=== PATIENT | male | born 1965 | race Caucasian/White ===

== ENCOUNTER 2017-03-30 19:54 | Observation (INO) | payer BC ==
[2017-03-30] MEDS ORDERED: METOCLOPRAMIDE 5 MG/ML 2 ML VIAL IVP STA (21:59)
[2017-03-30] MEDS ORDERED: SODIUM CHLORIDE 0.9% 500 ML IV STA (21:59)
[2017-03-30] MEDS ORDERED: SODIUM CHLORIDE 0.9% 1,000 ML IV STA (21:59)
--- NOTE | 2017-03-30 22:44 | ED ---
General Adult HPI - General Chief complaint: Dizziness Stated complaint: Dizziness Time Seen by Provider: 03/30/17 20:58 Source: patient, family, RN notes reviewed Mode of arrival: ambulatory Limitations: no limitations - History of Present Illness Initial comments: Chief complaint history of present illness this is a 51-year-old male here with a complaint of severe dizziness diaphoresis and mild chest pressure. The patient reports that approximately 10 days ago he had similar episode. At that time he was in [facility]. He was admitted to the hospital he had stress echocardiogram. The patient states at that time while driving he developed some discomfort to his right side of the chest became very diaphoretic and very dizzy. 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 States that he nearly passed out. States he had mild right-sided chest discomfort. - Related Data Home Medications Medication Instructions Recorded Confirmed Lisinopril [Zestril] 10 mg PO DAILY 03/30/17 03/30/17 Allergies Allergy/AdvReac Type Severity Reaction Status Date / Time No Known Allergies Allergy Verified 03/30/17 21:08 Review of Systems ROS Statement: Those systems with pertinent positive or pertinent negative responses have been documented in the HPI. Review of systems. Patient denies any headache or visual acuity changes at this time the chest pain no dizziness no shortness of breath no GI/ problems no neuro deficits. All systems reviewed. Past medical problems significant for having had 2 syncopal episode years ago possibly due to dehydration. Otherwise he did not lisinopril for several months because of recent diagnosed hypertension. Surgeries include undescended testicle and tonsillectomy. The patient's family history significant for cancers and include lung, breast, brain and ovary. Patient has seasonal ALLERGIES. He started smoking occasionally this past year. Encouraged to stop. Drink alcohol socially. ROS Other: All systems not noted in ROS Statement are negative. Past Medical History Past Medical History: Hypertension History of Any Multi-Drug Resistant Organisms: None Reported Past Surgical History: Tonsillectomy Additional Past Surgical History / Comment(s): testicle Past Psychological History: No Psychological Hx Reported Smoking Status: Former smoker Past Alcohol Use History: Rare Past Drug Use History: None Reported General Exam - General Exam Comments Initial Comments: General: The patient is awake and alert, in no distress, and does not appear acutely ill. Proximal one hour ago the patient reports he couldn't stand because of severe dizziness, diaphoresis, nausea, vomiting and head pressure. Eye: Pupils are equal, round and reactive to light, extra-ocular movements are intact ; there is normal conjunctiva bilaterally. No signs of icterus. Ears, nose, mouth and throat: There are moist mucous membranes and no oral lesions. Neck: The neck is supple, there is no tenderness, no carotid bruit, thyroid not enlarged, no anterior cervical lymphadenopathy. Cardiovascular: There is a regular rate and rhythm. No murmur, rub or gallop is appreciated. Respiratory: Lungs are clear to auscultation, respirations are non-labored, breath sounds are equal. No wheezes, stridor, rales, or rhonchi. Gastrointestinal: Soft, non-distended, non-tender abdomen without masses or organomegaly noted. There is no rebound or guarding present. No CVA tenderness. Bowel sounds are unremarkable. Back: There is no tenderness to palpation in the midline. There is no obvious deformity. No rashes noted. Musculoskeletal: Normal ROM, no tenderness, There is no pedal edema. There is no calf tenderness or swelling. Sensation intact. Pulses equal bilaterally 2+. Neurological: Neurologically intact no focal or lateralizing findings. Skin: Skin is warm and dry and no rashes or lesions are noted. Limitations: no limitations Course Vital Signs 03/30/17 03/30/17 20:46 21:27 Temperature 98.2 F Pulse Rate 74 70 Respiratory 20 16 Rate Blood Pressure 156/103 143/92 O2 Sat by Pulse 99 Oximetry EKG Findings - EKG Comments: EKG Findings:: EKG was done and reviewed at 2019 showing normal sinus rhythm no acute ST elevation no ectopy no ischemic changes. Rate 77 MO interval is 164 QRS [address] QT [address] Pettit Medical Decision Making - Medical Decision Making medical decision making; patient's white count is 9.2 hemoglobin 15 hematocrit of 44 with an INR 1.1. Potassium 4.0. BUN 10 creatinine 0.93 with a GFR greater than 60. Disposition Clinical Impression: Severe dizziness, Syncope Disposition: ADMITTED IP TO THIS HOSP Condition: Serious Referrals: Valentine Cevallos DO [Primary Care Provider] - 1-2 days
[2017-03-30 22:45] LABS: Basophils # (A) 0.1 k/uL (0-0.2); Basophils % (A) 1 %; CH 29.3; CHCM 36.1; Eosinophils # (A) 0.1 k/uL (0-0.7); Eosinophils % (A) 1 %; HCT 44.6 % (39.0-53.0); HDW 2.63; HGB 15.3 gm/dL (13.0-17.5); Luc # (Auto) 0.14; Luc % (Auto) 2; Lymphocytes # (A) 2.6 k/uL (1.0-4.8); Lymphocytes % (A) 28 %; MCH 27.9 pg (25.0-35.0); MCHC 34.3 g/dL (31.0-37.0); MCV 81.3 fL (80.0-100.0); Mean Platelet Volume 8.5; Monocytes # (A) 0.5 k/uL (0-1.0); Monocytes % (A) 5 %; Neutrophils # (A) 5.9 k/uL (1.3-7.7); Neutrophils % (A) 64 %; RBC 5.49 m/uL (4.30-5.90); RDW 14.5 % (11.5-15.5); WBC 9.2 k/uL (3.8-10.6); WBC (Perox) 9.01
[2017-03-30 22:54] LABS: ALT 31 U/L (21-72); AST 19 U/L (17-59); Alkaline Phosphatase 55 U/L (38-126); Anion Gap 10 mmol/L; Blood Urea Nitrogen 10 mg/dL (9-20); Calcium 9.5 mg/dL (8.4-10.2); Carbon Dioxide 23 mmol/L (22-30); Chloride 107 mmol/L (98-107); Glucose 87 mg/dL (74-99); INR 1.1 (<1.2); Non-African American GFR(MDRD) >60 (>60 ml/min/1.73 sqM); Sodium 140 mmol/L (137-145); Total Bilirubin 0.5 mg/dL (0.2-1.3); Total Protein 6.8 g/dL (6.3-8.2)
[2017-03-30] MEDS ORDERED: ACETAMINOPHEN TAB 325 MG TAB PO PRN (23:12)
[2017-03-30] MEDS ORDERED: NALOXONE 0.4 MG/ML 1 ML VIAL IV PRN (23:12)
[2017-03-30] MEDS ORDERED: SODIUM CHLORIDE 0.9% 1,000 ML IV SCH (23:15)
[2017-03-30 23:18] LABS: Troponin I <0.012 ng/mL (0.000-0.034)
--- NOTE | 2017-03-30 23:32 | CT ---
EXAM: CT Head Without Intravenous Contrast CLINICAL HISTORY: Reason: Recurrent, severe dizziness with diaphoresis TECHNIQUE: Axial computed tomography images of the head/brain without intravenous contrast. CTDI is 57.40 mGy and DLP is 1150.50 mGy-cm. This CT exam was performed using one or more of the following dose reduction techniques: automated exposure control, adjustment of the mA and/or kV according to patient size, and/or use of iterative reconstruction technique. COMPARISON: No relevant prior studies available. FINDINGS: Brain: Mild volume loss and small vessel disease. No hemorrhage. No edema. Ventricles: Unremarkable. No ventriculomegaly. Bones/joints: Unremarkable. No acute fracture. Soft tissues: Unremarkable. Sinuses: Mild paranasal sinus mucosal thickening. Small maxillary sinus polyps or mucous retention cyst. Mastoid air cells: Unremarkable as visualized. No mastoid effusion. Nasopharynx: Mild polypoid thickening within the right nasal cavity associated with the middle turbinate. Mild leftward nasal septal deviation. IMPRESSION: No evidence acute intracranial abnormality
[2017-03-31 00:04] LABS: Creatine Kinase 120 U/L (55-170)
[2017-03-31 00:14] LABS: Creatine Kinase MB 1.4 ng/mL (0.0-2.4)
[2017-03-31 06:40] LABS: Creatine Kinase 94 U/L (55-170)
[2017-03-31 06:53] LABS: Troponin I <0.012 ng/mL (0.000-0.034)
--- NOTE | 2017-03-31 07:17 | P.CNNES ---
History of Present Illness Consult date: 03/31/17 Reason for Consult: Patient being evaluated for near syncope and diaphoresis. History of Present Illness: This patient is a 51-year-old right-handed white male who was brought to the emergency room at [facility] for evaluation of acute onset of dizziness and diaphoresis. 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 He was at work yesterday and apparently had onset of severe diaphoresis and lightheaded feeling. Patient states he was feeling as if he was going to pass out. Several of his coworkers helped him sit down in a chair and commented that he was severely diaphoretic and appeared to be paling complexion. They recommended that he come into the hospital for evaluation. The patient mentions that 10 days ago while driving to [facility] he had an episode in which she felt the same symptoms of lightheadedness and extreme weakness. He also had some diaphoresis at that time. He was taken to the local emergency room and [facility] and underwent a stress test. Apparently his laboratory testing was all fine and his stress test also came back within normal limits. The patient mentions that about 10 years ago he did have some symptoms that were related to his heart. He underwent a cardiac catheterization at that time with Dr. RACHEL Harris. He states that that catheterization report was normal. More recently he has been having difficulty controlling his blood pressure. He was started on lisinopril by his primary care physician about a month ago and has been concern that he may be having side effects to the lisinopril. He states that he feels dizzy and lightheaded usually soon after taking his dose of lisinopril in the evening. He was seen by his primary care physician a few days ago and was recommended to undergo a carotid Doppler ultrasound which has been scheduled for him as outpatient. The patient states that he has no previous history of actual passing out and loss of consciousness. His current symptoms are more of a sense of extreme fatigue associated with his episode of near syncope. The patient was advised to take one baby aspirin daily for secondary stroke prevention. He is not a big [place] acute for medications and has been trying to do all of his medications naturally. He is also working on weight reduction and concerned if he can bring down his blood pressure with diet control and weight restriction. The patient has not been seen by cardiology locally any time recent. As mentioned he did see Dr. RACHEL Harris in the past for cardiac catheterization. The patient otherwise states he has no previous history of TIA or stroke. He is now been admitted and neurology has been consulted for further evaluation and recommendations. Review of Systems Constitutional: Denies chills, Denies fever Eyes: denies blurred vision, denies pain Ears, nose, mouth and throat: Denies headache, Denies sore throat Cardiovascular: Denies chest pain, Denies shortness of breath Respiratory: Denies cough Gastrointestinal: Denies abdominal pain, Denies diarrhea, Denies nausea, Denies vomiting Musculoskeletal: Denies myalgias Integumentary: Denies pruritus, Denies rash Neurological: Denies numbness, Denies weakness Psychiatric: Denies anxiety, Denies depression Endocrine: Denies fatigue, Denies weight change Past Medical History Past Medical History: Hypertension Additional Past Medical History / Comment(s): syncopal episodes History of Any Multi-Drug Resistant Organisms: None Reported Past Surgical History: Tonsillectomy Additional Past Surgical History / Comment(s): testicle Past Anesthesia/Blood Transfusion Reactions: No Reported Reaction Past Psychological History: No Psychological Hx Reported Smoking Status: Former smoker Past Alcohol Use History: Rare Past Drug Use History: None Reported - Past Family History Father Family Medical History: Myocardial Infarction ([place]) Mother Family Medical History: Cancer Additional Family Medical History / Comment(s): AAA - blockage in LE Medications and Allergies Home Medications Medication Instructions Recorded Confirmed Type Lisinopril [Zestril] 10 mg PO DAILY 03/30/17 03/30/17 History Allergies Allergy/AdvReac Type Severity Reaction Status Date / Time No Known Allergies Allergy Verified 03/30/17 21:08 Physical Examination - Vital Signs Vital Signs: Vital Signs Temp Pulse Pulse Resp BP BP Pulse Ox 03/31/17 03:51 98.4 F 58 L 16 146/80 99 03/31/17 03:49 54 L 16 03/31/17 01:00 62 16 03/31/17 00:50 97.7 F 62 16 164/100 95 03/31/17 00:32 98.0 F 70 20 169/96 100 03/30/17 23:07 67 20 142/69 98 03/30/17 21:27 70 16 143/92 99 03/30/17 20:46 98.2 F 74 20 156/103 Intake and Output 03/30/17 03/31/17 03/31/17 22:59 06:59 14:59 Other: Voiding Method Toilet Weight 97.522 kg - Constitutional General appearance: average body habitus, cooperative - EENT EENT: PERRL, mucous membranes moist - Respiratory Respiratory: lungs clear, normal breath sounds - Cardiovascular Cardiovascular: regular rate, normal S1, normal S2 Extremities: no peripheral edema bilaterally - Gastrointestinal Gastrointestinal: normoactive bowel sounds - Integumentary Integumentary: normal - Neurologic Cranial nerve examination: PERRL, EOMI, VFF, V1/V2/V3 grossly intact, face symmetric, tongue midline, intact gag reflex, intact corneal reflex, normal palatal elevation Speech examination: intact Sensorimotor examination: intact Detailed motor examination: grossly full strength in all extremities Motor examination - right side: 5/5: biceps, triceps, wrist flexion, wrist extension, steel hanger, hip flexors, knee extensors, dorsiflexion, toe extension (EHL) , plantarflexion Motor examination - left side: 5/5: biceps, triceps, wrist flexion, wrist extension, steel hanger, hip flexors, knee extensors, dorsiflexion, toe extension (EHL) , plantarflexion Detailed sensory examination: intact Reflex and gait examination: intact Reflexes: 1+: ankle, bicep, knee, tricep - Musculoskeletal Musculoskeletal: no pain - Psychiatric Psychiatric: mood/affect appropriate, cooperative Results - Laboratory Findings CBC and BMP: 03/30/17 22:32 03/30/17 22:32 Assessment and Plan (1) Near syncope Status: Acute Code(s): R55 - SYNCOPE AND COLLAPSE (2) Disequilibrium Status: Acute Code(s): R42 - DIZZINESS AND GIDDINESS (3) Hypertension Status: Acute Code(s): I10 - ESSENTIAL (PRIMARY) HYPERTENSION (4) Severe dizziness Status: Acute Code(s): R42 - DIZZINESS AND GIDDINESS Plan: This patient is a 51-year-old male who was admitted to [facility] with symptoms of severe diaphoresis and dizziness. Patient had a near syncopal episode at work. He was noted by his colleagues is being very pale and sweaty. He was brought into the emergency room where he was subsequently admitted to Hospital. His neurological examination at this time is nonfocal. He did undergo a computed tomography scan of the brain in the ER which was reviewed and is negative for any acute changes. The patient's clinical history and exam findings are more consistent probable near syncope of cardiogenic origin. We have recommended a cardiology consultation for further evaluation and assessment. He has been having difficulty controlling his blood pressure with the use of lisinopril. We will await further recommendations from cardiology. We are recommending a carotid Doppler ultrasound to be done today for the patient as well. We will obtain his most recent laboratory test results as well from his primary care physician. His neurological examination at this time is nonfocal. We will continue close neurological follow-up for the patient during this admission. Time with Patient: Greater than 30
[2017-03-31 08:19] VITALS: RESP 18
--- NOTE | 2017-03-31 08:44 | US ---
EXAMINATION TYPE: US carotid duplex BILAT DATE OF EXAM: 03/31/2017 COMPARISON: CT Brain CLINICAL HISTORY: Patient with near syncopal episodes.. Patient stated has loss of balance episodes with current blood pressure medication. EXAM MEASUREMENTS: RIGHT: Peak Systolic Velocity (PSV) cm/sec ----- Right CCA: 94.2 ----- Right ICA: 87.7 ----- Right ECA: 101.8 ICA/CCA ratio: 0.9 RIGHT: End Diastole cm/sec ----- Right CCA: 36.1 ----- Right ICA: 43.6 ----- Right ECA: 24.8 LEFT: Peak Systolic Velocity (PSV) cm/sec ----- Left CCA: 100.5 ----- Left ICA: 85.4 ----- Left ECA: 95.5 ICA/CCA ratio: 0.8 LEFT: End Diastole cm/sec ----- Left CCA: 28.5 ----- Left ICA: 18.4 ----- Left ECA: 18.4 VERTEBRALS (direction of flow): Right Vertebral: Antegrade Left Vertebral: Antegrade Rhythm: Normal Mild intimal wall thickening at bilateral carotid bifurcation, but PSV is wnl bilaterally. IMPRESSION: No evidence of hemodynamically significant stenosis within either carotid system.
[2017-03-31] MEDS ORDERED: ENOXAPARIN 40 MG/0.4 ML SYRINGE SQ SCH (09:00)
--- NOTE | 2017-03-31 10:41 | P.CRDCN ---
History of Present Illness History of present illness: Patient admitted with recurrent syncope. He's had at least 3 episodes after starting lisinopril 10 mg daily for hypertension. One of the episodes occurred while he was driving He's had prior episodes and at least one of them occurred when he was sitting in a restaurant. He had just started drinking an alcoholic beverage. Recent stress test was normal recent 2-D echo was normal it showed borderline concentric left ventricular hypertrophy EF 60-65% normal diastolic function RV size was normal Social alcohol use Normal electrolytes two normal cardiac enzymes Impression Recurrent syncopal spells one episode while driving several other episodes while sitting and a few others while standing, associated nausea and sweatiness cold and clammy. Symptomatology suggestive and consistent with neurocardiogenic syncope However there were a few episodes where he was sitting and and one episode he was driving. He was not orthostatic and felt his blood pressure was high upon standing. Also need to evaluate for cardioinhibitory neurocardiogenic syncope Suggest Stop lisinopril Low salt diet Minimal alcohol consumption Home blood pressure monitoring Tilt table test today Consider implantation of a loop monitor especially if symptoms continue For antihypertensive therapy one may consider amlodipine 2.5 mg by mouth daily instead on any antihypertensive drug could precipitate an underlying tendency for neurocardiogenic syncope Past Medical History Past Medical History: Hypertension Additional Past Medical History / Comment(s): syncopal episodes History of Any Multi-Drug Resistant Organisms: None Reported Past Surgical History: Tonsillectomy Additional Past Surgical History / Comment(s): testicle Past Anesthesia/Blood Transfusion Reactions: No Reported Reaction Past Psychological History: No Psychological Hx Reported Smoking Status: Former smoker Past Alcohol Use History: Rare Past Drug Use History: None Reported - Past Family History Father Family Medical History: Myocardial Infarction ([place]) Mother Family Medical History: Cancer Additional Family Medical History / Comment(s): AAA - blockage in LE Medications and Allergies Home Medications Medication Instructions Recorded Confirmed Type Lisinopril [Zestril] 10 mg PO DAILY 03/30/17 03/30/17 History Allergies Allergy/AdvReac Type Severity Reaction Status Date / Time No Known Allergies Allergy Verified 03/30/17 21:08 Physical Exam Vitals: Vital Signs Temp Pulse Pulse Pulse Pulse Resp BP 03/31/17 10:20 59 L 57 L 03/31/17 08:00 98.4 F 64 18 03/31/17 03:51 98.4 F 58 L 16 03/31/17 03:49 54 L 16 03/31/17 01:00 62 16 03/31/17 00:50 97.7 F 62 16 03/31/17 00:32 98.0 F 70 20 169/96 03/30/17 23:07 67 20 142/69 03/30/17 21:27 70 16 143/92 03/30/17 20:46 98.2 F 74 20 156/103 BP BP BP Pulse Ox 03/31/17 10:20 158/109 150/99 03/31/17 08:00 143/87 98 03/31/17 03:51 146/80 99 03/31/17 03:49 03/31/17 01:00 03/31/17 00:50 164/100 95 03/31/17 00:32 100 03/30/17 23:07 98 03/30/17 21:27 99 03/30/17 20:46 Intake and Output 03/30/17 03/31/17 03/31/17 22:59 06:59 14:59 Other: Voiding Method Toilet Weight 97.522 kg Results 03/30/17 22:32 03/30/17 22:32 Cardiac Enzymes 03/30/17 03/30/17 03/31/17 Range/Units 22:32 22:32 05:32 AST 19 (17-59) U/L CK-MB (CK-2) 1.4 1.0 (0.0-2.4) ng/mL Troponin I <0.012 <0.012 (0.000-0.034) ng/mL Coagulation 03/30/17 Range/Units 22:32 PT 11.0 (9.0-12.0) sec CBC 03/30/17 Range/Units 22:32 WBC 9.2 (3.8-10.6) k/uL RBC 5.49 (4.30-5.90) m/uL Hgb 15.3 (13.0-17.5) gm/dL Hct 44.6 (39.0-53.0) % Plt Count 197 (150-450) k/uL Comprehensive Metabolic Panel 03/30/17 Range/Units 22:32 Sodium 140 (137-145) mmol/L Potassium 4.0 (3.5-5.1) mmol/L Chloride 107 (98-107) mmol/L Carbon Dioxide 23 (22-30) mmol/L BUN 10 (9-20) mg/dL Creatinine 0.93 (0.66-1.25) mg/dL Glucose 87 (74-99) mg/dL Calcium 9.5 (8.4-10.2) mg/dL AST 19 (17-59) U/L ALT 31 (21-72) U/L Alkaline Phosphatase 55 (38-126) U/L Total Protein 6.8 (6.3-8.2) g/dL Albumin 4.4 (3.5-5.0) g/dL Current Medications Generic Name Dose Route Start Last Admin Trade Name Freq PRN Reason Stop Dose Admin Acetaminophen 650 mg 03/30/17 23:12 03/31/17 01:18 Tylenol Tab PO 650 mg Q6HR PRN Administration Mild Pain or Fever > 100.5 Enoxaparin Sodium 40 mg 03/31/17 09:00 03/31/17 10:31 Lovenox SQ Not Given DAILY TYRESE Sodium Chloride 1,000 mls @ 75 mls/hr 03/30/17 21:59 03/30/17 23:46 Saline 0.9% IV 03/31/17 11:18 75 mls/hr .[id number] STA Administration Sodium Chloride 1,000 mls @ 80 mls/hr 03/30/17 23:15 Saline 0.9% IV .[id number] TYRESE Naloxone HCl 0.2 mg 03/30/17 23:12 Narcan IV Q2M PRN Opioid Reversal Intake and Output 03/30/17 03/31/17 03/31/17 22:59 06:59 14:59 Other: Voiding Method Toilet Weight 97.522 kg 03/30/17 22:32 03/30/17 22:32
[2017-03-31] MEDS ORDERED: SODIUM CHLORIDE 0.9% 1,000 ML IV ONE (10:50)
[2017-03-31 11:32] LABS: Creatine Kinase 86 U/L (55-170)
[2017-03-31 11:46] LABS: Troponin I <0.012 ng/mL (0.000-0.034)
--- NOTE | 2017-03-31 11:48 | P.CRDCN ---
History of Present Illness Consult date: 03/31/17 History of present illness: This is a 51-year-old pleasant male. Past medical history significant for hypertension and chronic tobacco abuse. Patient quit smoking approximately 2 weeks ago. He presented to the emergency room with complaints of extreme dizziness, chest pressure and diaphoresis. He states he was going down the stairs at work when these symptoms began and had to be assisted to a chair by his coworkers. He said he had a similar episode approximately 2 weeks ago: [place]. He went to the hospital at that time and underwent cardiac evaluation. He states the stress test was normal and he was discharged home to follow-up with his primary care physician. He denies any history of coronary artery disease. He did see Dr. VICKY Harris approximately 10 years ago for reasoning he cannot recall but he underwent cardiac catheterization at that time that he states was normal. He was recently started on lisinopril by his primary care physician in approximately 2 months ago. He states that these symptoms seem to be related to this new medication. He does not monitor his blood pressure regularly at home but he does have it checked periodically while at work. His blood pressure tends to run 140 systolic. 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 He has recently lost 15 pounds due to change in diet and increased exercise. He denies any ongoing symptoms of chest pain, shortness of breath, dizziness, palpitations or diaphoresis. Although he does say he feels weak. EKG indicates normal sinus mechanism. Telemetry tracings overnight are unremarkable. CT of the brain performed in the ER is negative for any acute changes. Troponin negative 2. All other lab work unremarkable. Review of Systems Extensive review of systems performed, negative except mentioned in HPI. Past Medical History Past Medical History: Hypertension Additional Past Medical History / Comment(s): syncopal episodes History of Any Multi-Drug Resistant Organisms: None Reported Past Surgical History: Tonsillectomy Additional Past Surgical History / Comment(s): testicle Past Anesthesia/Blood Transfusion Reactions: No Reported Reaction Past Psychological History: No Psychological Hx Reported Smoking Status: Former smoker Past Alcohol Use History: Rare Past Drug Use History: None Reported - Past Family History Father Family Medical History: Myocardial Infarction ([place]) Mother Family Medical History: Cancer Additional Family Medical History / Comment(s): AAA - blockage in LE Medications and Allergies Home Medications Medication Instructions Recorded Confirmed Type Lisinopril [Zestril] 10 mg PO DAILY 03/30/17 03/30/17 History Allergies Allergy/AdvReac Type Severity Reaction Status Date / Time No Known Allergies Allergy Verified 03/30/17 21:08 Physical Exam Vitals: Vital Signs Temp Pulse Pulse Resp BP BP Pulse Ox 03/31/17 08:00 98.4 F 64 18 143/87 98 03/31/17 03:51 98.4 F 58 L 16 146/80 99 03/31/17 03:49 54 L 16 03/31/17 01:00 62 16 03/31/17 00:50 97.7 F 62 16 164/100 95 03/31/17 00:32 98.0 F 70 20 169/96 100 03/30/17 23:07 67 20 142/69 98 03/30/17 21:27 70 16 143/92 99 03/30/17 20:46 98.2 F 74 20 156/103 Intake and Output 03/30/17 03/31/17 03/31/17 22:59 06:59 14:59 Other: Voiding Method Toilet Weight 97.522 kg GENERAL: This is a 51-year-old male in no apparent distress at the time of my examination. HEENT: Head is atraumatic, normocephalic. Pupils are equal, round. Sclerae anicteric. Conjunctivae are clear. Mucous membranes of the mouth are moist. Neck is supple. There is no jugular venous distention. No carotid bruit is heard. LUNGS: Clear to auscultation no wheezes, rales or rhonchi. No chest wall tenderness is noted on palpation or with deep breathing. HEART: Regular rate and rhythm without murmurs, rubs or gallops. S1 and S2 heard. ABDOMEN: Soft, nontender. Bowel sounds are heard. No organomegaly noted. EXTREMITIES: 2+ peripheral pulses with no evidence of peripheral edema and no calf tenderness noted. NEUROLOGIC: Patient is awake, alert and oriented x3. Results 03/30/17 22:32 03/30/17 22:32 Cardiac Enzymes 03/30/17 03/30/17 03/31/17 Range/Units 22:32 22:32 05:32 AST 19 (17-59) U/L CK-MB (CK-2) 1.4 1.0 (0.0-2.4) ng/mL Troponin I <0.012 <0.012 (0.000-0.034) ng/mL Coagulation 03/30/17 Range/Units 22:32 PT 11.0 (9.0-12.0) sec CBC 03/30/17 Range/Units 22:32 WBC 9.2 (3.8-10.6) k/uL RBC 5.49 (4.30-5.90) m/uL Hgb 15.3 (13.0-17.5) gm/dL Hct 44.6 (39.0-53.0) % Plt Count 197 (150-450) k/uL Comprehensive Metabolic Panel 03/30/17 Range/Units 22:32 Sodium 140 (137-145) mmol/L Potassium 4.0 (3.5-5.1) mmol/L Chloride 107 (98-107) mmol/L Carbon Dioxide 23 (22-30) mmol/L BUN 10 (9-20) mg/dL Creatinine 0.93 (0.66-1.25) mg/dL Glucose 87 (74-99) mg/dL Calcium 9.5 (8.4-10.2) mg/dL AST 19 (17-59) U/L ALT 31 (21-72) U/L Alkaline Phosphatase 55 (38-126) U/L Total Protein 6.8 (6.3-8.2) g/dL Albumin 4.4 (3.5-5.0) g/dL Current Medications Generic Name Dose Route Start Last Admin Trade Name Freq PRN Reason Stop Dose Admin Acetaminophen 650 mg 03/30/17 23:12 03/31/17 01:18 Tylenol Tab PO 650 mg Q6HR PRN Administration Mild Pain or Fever > 100.5 Enoxaparin Sodium 40 mg 03/31/17 09:00 Lovenox SQ DAILY TYRESE Sodium Chloride 1,000 mls @ 75 mls/hr 03/30/17 21:59 03/30/17 23:46 Saline 0.9% IV 03/31/17 11:18 75 mls/hr .[id number] STA Administration Sodium Chloride 1,000 mls @ 80 mls/hr 03/30/17 23:15 Saline 0.9% IV .[id number] TYRESE Naloxone HCl 0.2 mg 03/30/17 23:12 Narcan IV Q2M PRN Opioid Reversal Intake and Output 03/30/17 03/31/17 03/31/17 22:59 06:59 14:59 Other: Voiding Method Toilet Weight 97.522 kg 03/30/17 22:32 03/30/17 22:32 EKG Interpretations (text) EKG indicates normal sinus mechanism with no acute ST or T-wave abnormality. Telemetry tracings indicate sinus rhythm with no arrhythmia. Assessment and Plan Plan: ASSESSMENT 1. Recurrent syncopal episodes 2. Essential hypertension PLAN Please see documentation Dr. Campa for plan. Nurse Practitioner note has been reviewed, I agree with a documented findings and plan of care. Patient was seen and examined.
[2017-03-31 12:08] VITALS: TEMP 97.6
[2017-03-31] MEDS ORDERED: RX INFO: IV CONTRAST WAS GIVEN 1 EACH MISC MISCELLANE PRN (12:16)
--- NOTE | 2017-03-31 13:32 | CT ---
EXAMINATION TYPE: CT angio chest DATE OF EXAM: 03/31/2017 COMPARISON: NONE HISTORY: 51-year-old male Dizziness and weakness TECHNIQUE: Contiguous axial scanning of the chest performed with IV Contrast, patient injected with 1 00 mL of Omnipaque 350. Coronal/sagittal MIP reconstructions performed. CT DLP: 452 mGycm Automated exposure control for dose reduction was used. FINDINGS: The heart is normal size without pericardial effusion. No reflux of contrast into the hepatic veins o r flattening of the interventricular septum. Ectasia of the ascending aorta at 3.9 cm. There is conventional arterial sobriety and knee. Borderlin e ectasia upper descending thoracic aorta at 3.0 cm. Satisfactory opacification of the pulmonary arterial system without evidence for pulmonary embolus. Some calcified left hilar lymph nodes and right tracheobronchial angle lymph nodes are compatible wit h prior granulomatous disease. No thoracic lymphadenopathy. Mild bilateral gynecomastia. Evaluation of the lungs show some strandy atelectasis/scarring at the peripheral right upper lobe. Ca lcified granuloma peripheral left lower lobe and posterior medial left base. Visualized upper abdomen shows no gross abnormality. Bones: No osseous destructive process. IMPRESSION: 1. NO EVIDENCE FOR PULMONARY EMBOLUS. 2. ECTATIC ASCENDING AORTA AT 3.9 CM. 3. PRIOR GRANULOMATOUS DISEASE. NO ACUTE PULMONARY PROCESS SEEN.
--- NOTE | 2017-03-31 13:36 | CE ---
CARDIAC ELECTROPHYSIOLOGY REPORT History of recurrent syncope, some consistent vasovagal but some episodes occur even during sitting, multiple episodes noted. Baseline blood pressure 168/96 mmHg, baseline heart rate 58 beats per minute. Patient is tilted upright at an angle of 70 degrees per protocol. Initially upon standing, there is a significant drop in blood pressure, but this then stabilized and his blood pressure remained between 130 to 150 mmHg systolic, diastolics remain in the 90s. Heart rates remain in the 60s. There was no further sudden drop in blood pressure. No evidence of neurocardiac syncope. IMPRESSION: 1. Baseline hypertension. 2. Orthostatic hypotension. 3. Neurocardiogenic syncope was not provoked during this tilt-table test. PLAN: The patient's symptoms are consistent with neurocardiogenic syncope. He also has hypertension. Some of the episodes occur while sitting. If he continues to have recurrent episodes despite discontinuation of lisinopril and home blood pressure monitoring then a Reveal monitor should be being implanted. This was discussed with the patient. He will see me again in about 3 to 4 weeks. MMODL / IJN: [id number] /
--- NOTE | 2017-03-31 15:41 | HP ---
HISTORY AND PHYSICAL DATE OF ADMISSION: 03/31/2017 PRESENT COMPLAINT: Nearly passing out. HISTORY OF PRESENTING COMPLAINT: This is a very pleasant 51-year-old patient of Dr. Cevallos. Only significant past medical history of hypertension. Patient presents with at least 3 episodes of near- syncope. 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 Had a heavy buffet, went to sleep for a good 10 hours, woke up in the morning and then they were driving up [place], apparently suddenly started feeling unwell, broke out in a sweat. Car was pulled over. Patient was unsteady on his feet, just not feeling right, was admitted to hospital up [place]. Patient had a workup that included EKG, stress echocardiogram, all the cardiac workup came back negative. Patient again had another episode yesterday where he broke out in a sweat, he felt as if his head was in a glass bowl, legs felt heavy. Nearly like passing out. There was no shaking activity. Patient was still awake. There were no palpitations. The patient was not found to be hypoglycemic. Patient has had another similar episode at home, hence patient was admitted. Patient had a concussion of the head at about 7 years of age. No history of drug use, alcohol or smoking. He is relatively good shape. The patient has lost about 15 pounds in October in process of trying to lose weight. is at the bedside to give the history. HISTORY: There is no seizure-like activity reported. No chest pain. No leg swelling. No cough. REVIEW OF SYSTEMS: CONSTITUTIONAL: Lost 15 pounds, voluntarily since October of this year. HEENT: As above. RESPIRATORY: None. CARDIOVASCULAR: No palpitations. GASTROINTESTINAL: Denied. GENITOURINARY: None. MUSCULOSKELETAL: None. HEMATOLOGICAL: None. DERMATOLOGICAL: None. LYMPHATIC: None. PSYCHIATRY: None. NEUROLOGICAL: As above. No focal symptoms. PAST MEDICAL HISTORY: Hypertension. PAST SURGICAL HISTORY: Tonsillectomy. SOCIAL HISTORY: The patient did smoke in the remote past, does drink occasionally with friends. FAMILY HISTORY: Myocardial infarction, AAA. HOME MEDICATIONS: Lisinopril 10 mg a day. ALLERGIES: None. PHYSICAL EXAMINATION: Temperature 98.2, pulse 74, respirations 20, blood pressure 153/103, pulse of 99% on room air on presentation. GENERAL APPEARANCE: Average build, sitting up, comfortable. EYES: Pupils equal, conjunctivae normal. HEENT: Oral cavity normal. NECK: JVD not raised. Mass not palpable. RESPIRATORY: Effort normal, lungs are clear. CARDIOVASCULAR: First and second sounds are heard, no edema. ABDOMEN: Soft, nontender. Liver and spleen not palpable. LYMPHATIC: No lymph node palpable in neck and axillae. PSYCHIATRY: Alert and oriented x3. Mood and affect normal. NEUROLOGICAL: Pupils equal, cranial nerves grossly intact. Power and sensation grossly intact. LABORATORY: White count 9.2, hemoglobin 15.3, potassium 4.0, troponin x3 negative. D-dimer 0.8. CT scan of the brain, unremarkable. Carotid Doppler, no hemodynamic stenosis. Chest CTA, ectatic ascending aorta 3.9 cm. No PE. EKG normal sinus rhythm. Tilt-table test showed orthostatic hypotension with baseline hypertension and neurocardiogenic syncope was not provoked. ASSESSMENT: 1. Some evidence of orthostatic hypotension. Cannot rule out arrhythmia in a patient who is having episodes of near-syncope and bouts of perspiration. 2. Essential hypertension. PLAN: Dr. Campa from Cardiology has seen the patient earlier today with did the tilt-table test. He has stopped the lisinopril. Patient may need an event monitor as an outpatient. Also Dr. Lee from Neurology saw the patient earlier today. EEG is pending. Care was discussed with the patient and . Follow up from there. . MMYOANAL / IJN: [id number] /
[2017-03-31 15:48] VITALS: BP 143/89; PULSE 64
--- NOTE | 2017-03-31 19:03 | EEG ---
ELECTROENCEPHALOGRAM REPORT DATE OF EE03/31/2017. REFERRING PHYSICIAN: Dr. Roe. INTERPRETING PHYSICIAN: Dr. Siria eLe. ELECTROENCEPHALOGRAPHIC EXAMINATION REPORT: INDICATION FOR EXAMINATION: This patient is a 51-year-old male being evaluated for recurrent syncope. Patient with symptoms of near syncope with extreme dizziness. Patient being evaluated for neurocardiogenic syncope. AGE: 51. EEG FINDINGS: A routine 21 channel awake digital EEG recording was accomplished utilizing the 10-20 international system with bipolar and referential montages. The background activity in the most alert resting state consists of a low to medium amplitude. Fairly well developed and well sustained 8-9 Hz activity over the posterior head regions. This posterior rhythm attenuates to eye opening. There is a small amount of low amplitude 18-20 hertz beta activity seen maximally over the anterior head regions. Muscle and movement artifact was observed on a few occasions during the tracing. Hyperventilation was not performed. Photic stimulation at flash frequencies of 2-30 Hz produced a minimal occipital driving response. No epileptiform discharges were seen. IMPRESSION: This EEG is normal for the patient's age. The EEG failed to reveal any focal, lateralized, or epileptiform abnormalities. Clinical correlation is recommended. MMODL / IJN: [id number] /
--- NOTE | 2017-04-01 18:46 | DS ---
DISCHARGE SUMMARY DATE OF ADMISSION: 03/30/2017. DATE OF DISCHARGE: 03/31/2017 FINAL DIAGNOSES: 1. Orthostatic hypotension. 2. Essential hypertension. CONSULTATIONS: 1. Dr. Campa from Cardiology. 2. Dr. Lee from Neurology. HOSPITAL COURSE: This patient presented with episodes of passing out. See more details in my H&P. The patient did have a tilt-table test that did show some orthostatic hypotension but blood pressure is running on the higher side. Dr. Campa did stop patient's lisinopril. No further medications were added. The patient was informed that if he has more episodes then he is to call the physician's office. Patient may then get an event monitor. CT scan of the brain was unremarkable. Carotid Doppler was negative for any critical stenosis. Chest CTA was negative for PE. It showed ectatic ascending aorta at 3.9 cm. Tilt table test done by Dr. Campa. EEG done by Dr. Lee and that was negative. CT abdomen was checked by Dr. Campa. Patient this point has no restrictions and will follow up with Dr. Campa. Care was discussed with the patient and in detail. Questions were all answered. Troponin's were negative. DC MEDICATIONS: Zestril was discontinued. Follow with Dr. Campa in [address] Valentine Cevallos in 1 week. Patient to keep a daily blood pressure check. The patient to avoid no added salt diet. That is no salt added to his food additionally but can take regular diet otherwise. Check a daily blood pressure. MMODL / IJN: [id number] /
== END 2017-03-31 17:20 | disposition home or self-care (01) ==
LOC: EC 19:54 → 3OBS 23:12
PROVIDERS: ADMIT Hospitalist; ATTEND Hospitalist
DX: I95.1 Orthostatic hypotension (principal); I10 Essential (primary) hypertension; R61 Generalized hyperhidrosis; R07.89 Other chest pain; Z79.899 Other long term (current) drug therapy; Z87.820 Personal history of traumatic brain injury; Z82.49 Family history of ischemic heart disease and other diseases of the circulatory system; Z87.891 Personal history of nicotine dependence
CPT/HCPCS: 96361 ×4; 96374 ×2; 99285 ×2; 36415; 95819; 93005; 93660; 85379; 80053; 82550 ×2; 82553 ×2; 84484 ×2; 85025; 85610; 93880; 70450; 71275; G0378 ×2; J2765; Q9967

== ENCOUNTER → 2020-09-03 | Outpatient (CLI) | payer BC ==
--- NOTE | 2020-09-03 15:54 | CT ---
EXAMINATION TYPE: CT brain wo con DATE OF EXAM: 09/03/2020 COMPARISON: 03/30/2017 HISTORY: headaches, pain behind eye, no head injury CT DLP: 1239 mGycm Automated exposure control for dose reduction was used. FINDINGS: There is no acute intracranial hemorrhage, mass effect, or midline shift identified. The ventricles and sulci are within normal limits in size. The globes are intact and the visualized sinuses are aurea ar. Hypodensity within the basal ganglia on the left stable from prior exam compatible with remote la cunar infarct. IMPRESSION: No acute intracranial hemorrhage, mass effect, or midline shift is seen.
== END | disposition home or self-care (01) ==
LOC: RADCTMAIN 15:23
PROVIDERS: ATTEND Family Medicine
DX: R51.9 Headache, unspecified (principal)
CPT/HCPCS: 70450